=== PATIENT | male | born 1965 | race African-American/Black ===

== ENCOUNTER 2018-07-15 06:39 | Emergency (ER) | payer SELFPAY ==
[~2018-07-15] VITALS: Ht 188 cm; Wt 92.5 kg
[2018-07-15] MEDS ORDERED: BICILLIN-LA 2,400,000 UNITS/4 ML IM ONE (07:30)
[2018-07-15 08:30] VITALS: BP 152/84
== END 2018-07-15 08:32 | disposition home or self-care (01) ==
LOC: ED 08:26
DX: L04.1 Acute lymphadenitis of trunk (principal); A51.0 Primary genital syphilis
CPT/HCPCS: 36415; 86592; 86780; 96372; 99284; J0561

== ENCOUNTER 2021-06-23 10:06 | Emergency (ER) | payer MEDICAID ==
[~2021-06-23] VITALS: Ht 188 cm; Wt 94.0 kg
--- NOTE | 2021-06-23 10:10 | NUR ---
Report recieved from EMS staff, pt changed into gown, and bulk system operator completed. Pt with ONEILL and body aches today with some tingling in bilat hands and pain in body reported as down the back of bilat legs more than anywhere else. Pt denies CP, SOB, or upper back pain at this time.
--- NOTE | 2021-06-23 11:27 | NUR ---
electro mechanical technician arriving at bedside for orthostatics and 12 lead EKG per MD orders.
--- NOTE | 2021-06-23 11:32 | NUR ---
PCXR being done now.
--- NOTE | 2021-06-23 11:36 | NUR ---
physical therapy technician at bedside for draw.
[2021-06-23 11:48] LABS: BASOPHILS % (AUTO) 1 % (0-1); EOSINOPHILS % (AUTO) 0 % (1-7); LYMPHOCYTES % (AUTO) 27 % (22-44); MEAN CORPUSCULAR HEMOGLOBIN 30.3 pg (27.5-34.5); MEAN CORPUSCULAR HGB CONC 33.9 g/dL (33.2-36.2); MEAN PLATELET VOLUME 7.2 fL (7.4-10.4); MONOCYTES % (AUTO) 8 % (2-9); NEUTROPHILS % (AUTO) 64 % (42-75); PLATELET COUNT 218 x10^3/uL (130-400); RED CELL DISTRIBUTION WIDTH 14.1 % (9.4-14.8)
[2021-06-23 12:01] LABS: ALBUMIN 3.6 g/dL (3.4-5.0); ANION GAP 4 mmol/L (5-15); CHLORIDE 100 mmol/L (98-107)
[2021-06-23 12:08] LABS: ALANINE AMINOTRANSFERASE 20 U/L (12-78); ALKALINE PHOSPHATASE 96 U/L (45-117); BILIRUBIN,TOTAL 0.7 mg/dL (0.2-1.0); CREATININE 1.07 mg/dL (0.7-1.3); TOTAL PROTEIN 8.6 g/dL (6.4-8.2)
--- NOTE | 2021-06-23 12:20 | NUR ---
Lab at bedside for more labs to be drawn.
[2021-06-23 12:39] LABS: TROPONIN I < 0.015 ng/mL (0.000-0.045)
--- NOTE | 2021-06-23 12:43 | NUR ---
Pt swabbed for covid and specimen walked down to lab now. Awaiting Trop, D Dimer, and Lactic acid results at this time.
--- NOTE | 2021-06-23 12:48 | NUR ---
Lactic, Troponin, and D Dimer results reviewed and chart marked for recheck by MD at this time.
[2021-06-23 12:49] VITALS: BP 121/83
--- NOTE | 2021-06-23 13:01 | NUR ---
Dr. Bhagat at bedside to discuss findings and plan of care.
== END 2021-06-23 13:24 | disposition home or self-care (01) ==
LOC: ED 13:18
DX: U07.1 COVID-19 (principal); J18.9 Pneumonia, unspecified organism; K21.9 Gastro-esophageal reflux disease without esophagitis; M79.18 Myalgia, other site
CPT/HCPCS: 36415; 71045; 80053; 83605; 84484; 85025; 85379; 93005; 99285; U0003; U0005